=== PATIENT | male | born 1940 | race Caucasian/White ===

== ENCOUNTER 2018-05-05 10:34 | Day surgery (SDC) | payer MEDICARE, OTHER ==
[~2018-05-05] VITALS: Ht 177.8 cm; Wt 104.6 kg
[2018-05-05] VITALS (10 sets, daily range): BP systolic 129–164; BP diastolic 73–96
[2018-05-05] MEDS ORDERED: CLOP75TA15 PO (11:39)
[2018-05-05] MEDS ORDERED: TIOT18CA3 INH (11:39)
[2018-05-05] MEDS ORDERED: ASPI81TA52 PO (11:39)
[2018-05-05] MEDS ORDERED: ATOR20TA PO (11:39)
[2018-05-05] MEDS ORDERED: ATEN25TA PO (11:39)
[2018-05-05] MEDS ORDERED: OMEG1CAP PO (11:39)
[2018-05-05] MEDS ORDERED: OMEP40CA37 PO (11:39)
[2018-05-05] MEDS ORDERED: LEVO75TA PO (11:39)
[2018-05-05] MEDS ORDERED: FLUT1DIS4 INH (11:39)
[2018-05-05] MEDS ORDERED: FENO145T38 PO (11:39)
[2018-05-05] MEDS ORDERED: TRAZ150T78 PO (11:39)
[2018-05-05] MEDS ORDERED: IRBE150T51 PO (11:39)
[2018-05-05] MEDS ORDERED: CILO100T PO (11:39)
[2018-05-05 11:45] LABS: BASOPHILS # (AUTO) 0.1 X10'3 (0-0.2); BASOPHILS % (AUTO) 0.9 % (0-1); EOSINOPHILS # (AUTO) 0.3 X10'3 (0-0.9); HEMATOCRIT 49.2 % (42.0-52.0); HEMOGLOBIN 16.5 g/dl (14.0-17.9); LYMPHOCYTES # (AUTO) 1.8 X10'3 (1.1-4.8); LYMPHOCYTES % (AUTO) 27.5 % (21-51); MEAN CORPUSCULAR HEMOGLOBIN 31.2 PG (27.0-31.0); MEAN CORPUSCULAR HGB CONC 33.6 % (33.0-36.5); MEAN CORPUSCULAR VOLUME 92.8 FL (78-98); MEAN PLATELET VOLUME 7.9 FL (7.4-10.4); MONOCYTES # (AUTO) 0.6 X10'3 (0-0.9); MONOCYTES % (AUTO) 9.1 % (2-12); NEUTROPHILS # (AUTO) 3.8 X10'3 (1.8-7.7); NEUTROPHILS % (AUTO) 57.5 % (42-75); PLATELET COUNT 233 X10'3 (140-440); RED CELL DISTRIBUTION WIDTH 13.9 % (11.5-14.5); WHITE BLOOD COUNT 6.7 X10'3 (4.5-11.0)
[2018-05-05 11:52] LABS: ALBUMIN 3.9 G/DL (3.4-5.0); ANION GAP 7 (8-16); BLOOD UREA NITROGEN 15 MG/DL (7-18); BUN/CREATININE RATIO 9.2 (5.4-32.0); CALCIUM 9.5 MG/DL (8.5-10.1); CHLORIDE 103 MMOL/L (99-107); CREATININE 1.63 MG/DL (0.60-1.10); GLUCOSE 92 MG/DL (70-104); MAGNESIUM 1.8 MG/DL (1.5-2.4); POTASSIUM 4.5 MMOL/L (3.5-5.1); SODIUM 139 MMOL/L (135-145); eGFR 41 ML/MIN
[2018-05-05 11:56] LABS: INR 1.1 INR; PROTHROMBIN TIME 10.9 SECONDS (9.0-12.0)
[2018-05-05] MEDS ORDERED: normal saline 1000ml 1,000 ML IV SCH (12:15)
[2018-05-05] MEDS ORDERED: sod bicarbonate 150mEq in D5W 1,150 ML IV ONE (12:15)
[2018-05-05] MEDS ORDERED: diphenhydrAMINE 25mg capsule PO PRN (12:15)
[2018-05-05] MEDS ORDERED: midazolam 2 mg/2 ml injection ONE ×2 (16:50→18:44)
[2018-05-05] MEDS ORDERED: LIDOcaine 1% (10mg/ml)w/preservative injection 20ml MDV ONE (16:50)
[2018-05-05] MEDS ORDERED: iohexol 350MG/ML 100ml bottle IV ONE (16:50)
[2018-05-05] MEDS ORDERED: iohexol 350 MG/ML 50ML vial IV ONE (16:50)
[2018-05-05] MEDS ORDERED: fentaNYL/PF 50MCG/1 ML 2ML syringe ONE ×2 (16:50→18:45)
[2018-05-05] MEDS ORDERED: proCHLORperazine 10 MG/2 ml inj ONE (17:14)
[2018-05-05] MEDS ORDERED: iohexol 350 MG/1 ML 200ml bottle ONE (17:29)
[2018-05-05] MEDS ORDERED: heparin 1,000unit/ml 10ml vial 10 ML ONE (17:36)
[2018-05-05] MEDS ORDERED: clopidogrel 300mg tablet ONE (18:55)
[2018-05-05] MEDS ORDERED: omega-3 acid ethyl esters 1GM capsule PO SCH (20:00)
[2018-05-05] MEDS ORDERED: traZODone 150mg tablet PO SCH (21:00)
[2018-05-06] MEDS ORDERED: cilostazol 50mg tablet PO SCH (07:00)
[2018-05-06] MEDS ORDERED: pantoprazole 40mg Tablet.DR PO SCH (07:30)
[2018-05-06] MEDS ORDERED: losartan 50mg tablet PO SCH (08:00)
[2018-05-06] MEDS ORDERED: albuterol 2.5 MG/3 ML nebule NEB SCH (08:00)
[2018-05-06] MEDS ORDERED: aspirin 81mg tablet.DR PO SCH (08:00)
[2018-05-06] MEDS ORDERED: levoTHYROXINE 75mcg tablet PO SCH (08:00)
[2018-05-06] MEDS ORDERED: fenofibrate 145mg tablet PO SCH (08:00)
[2018-05-06] MEDS ORDERED: atorvastatin 20mg tablet PO SCH (08:00)
[2018-05-06] MEDS ORDERED: BUDESONIDE 0.25 MG/2 ML AMPUL.NEB IH SCH (08:00)
[2018-05-06] MEDS ORDERED: clopidogrel 75mg tablet PO SCH (08:00)
[2018-05-06] MEDS ORDERED: ipratropium 0.5 MG/2.5ML nebule IH SCH (08:00)
[2018-05-06] MEDS ORDERED: atenolol 25mg tablet PO SCH (08:00)
== END 2018-05-05 22:40 | disposition home or self-care (01) ==
LOC: SSTAY O 10:34 → PCU 3S 21:21 → SSTAY O 22:40
PROVIDERS: ATTEND Internal Medicine Cardiovascular Disease
DX: I25.708 Atherosclerosis of coronary artery bypass graft(s), unspecified, with other forms of angina pectoris (principal); I10 Essential (primary) hypertension; E78.5 Hyperlipidemia, unspecified; M19.90 Unspecified osteoarthritis, unspecified site; F32.9 Major depressive disorder, single episode, unspecified; Z90.49 Acquired absence of other specified parts of digestive tract; G47.33 Obstructive sleep apnea (adult) (pediatric); K21.9 Gastro-esophageal reflux disease without esophagitis; E05.90 Thyrotoxicosis, unspecified without thyrotoxic crisis or storm; Z98.41 Cataract extraction status, right eye; Z95.828 Presence of other vascular implants and grafts; Z98.42 Cataract extraction status, left eye; Z85.828 Personal history of other malignant neoplasm of skin; Z72.89 Other problems related to lifestyle; Z86.79 Personal history of other diseases of the circulatory system; Z95.5 Presence of coronary angioplasty implant and graft; Z95.1 Presence of aortocoronary bypass graft; Z79.891 Long term (current) use of opiate analgesic; Z79.01 Long term (current) use of anticoagulants; Z79.82 Long term (current) use of aspirin; Z86.74 Personal history of sudden cardiac arrest; Z87.891 Personal history of nicotine dependence; Z87.09 Personal history of other diseases of the respiratory system; Z88.8 Allergy status to other drugs, medicaments and biological substances; Z79.899 Other long term (current) drug therapy; Z98.890 Other specified postprocedural states; Z82.3 Family history of stroke; Z82.49 Family history of ischemic heart disease and other diseases of the circulatory system
CPT/HCPCS: 36415; 80048; 83735; 85025; 85610; 93005; 93459; 99152; 99153; A6257; C1760; C1874; C1887; C9600; J0780; J1644; J2001; J2250; J3010; Q0163; Q9967; A4620; C1725; C1769; C1894; G0378

== ENCOUNTER 2018-08-04 08:26 | Day surgery (SDC) | payer MEDICARE, OTHER ==
[2018-08-04] VITALS (14 sets, daily range): BP systolic 90–157; BP diastolic 54–106
[~2018-08-04] VITALS: Ht 177.8 cm; Wt 95.7 kg
[~2018-08-04 08:26] MED LIST: ASPI81TA52 PO; ATEN25TA PO; ATOR20TA PO; CILO100T PO; CLOP75TA15 PO; FENO145T38 PO; FLUT1DIS4 INH; IRBE150T51 PO; LEVO75TA PO; OMEG1CAP PO; OMEP40CA37 PO; TIOT18CA3 INH; TRAZ150T78 PO
[2018-08-04] MEDS ORDERED: normal saline 1000ml 1,000 ML IV SCH (08:45)
[2018-08-04] MEDS ORDERED: fentaNYL/PF 50MCG/1 ML 2ML syringe IV ONE (08:50)
[2018-08-04] MEDS ORDERED: MIDAZolam 1mg/ml 10ml vial IV ONE (08:50)
[2018-08-04] MEDS ORDERED: DIGO125T PO (09:12)
[2018-08-04] MEDS ORDERED: ALBU8.5H8 INH (09:12)
[2018-08-04] MEDS ORDERED: RIVA15TA PO (09:12)
[2018-08-04] MEDS ORDERED: LEVO75TA56 PO (09:12)
[2018-08-04] MEDS ORDERED: FLEC100T2 PO (09:12)
[2018-08-04 09:33] LABS: BASOPHILS % (AUTO) 0.7 % (0-1); EOSINOPHILS # (AUTO) 0.2 X10'3 (0-0.9); EOSINOPHILS % (AUTO) 2.7 % (0-6); HEMATOCRIT 50.7 % (42.0-52.0); HEMOGLOBIN 16.6 g/dl (14.0-17.9); LYMPHOCYTES # (AUTO) 1.1 X10'3 (1.1-4.8); LYMPHOCYTES % (AUTO) 18.2 % (21-51); MEAN CORPUSCULAR HEMOGLOBIN 31.1 PG (27.0-31.0); MEAN CORPUSCULAR HGB CONC 32.8 g/dL (33.0-36.5); MEAN CORPUSCULAR VOLUME 94.9 FL (78-98); MEAN PLATELET VOLUME 7.8 FL (7.4-10.4); MONOCYTES # (AUTO) 0.6 X10'3 (0-0.9); NEUTROPHILS # (AUTO) 4.3 X10'3 (1.8-7.7); NEUTROPHILS % (AUTO) 69.4 % (42-75); PLATELET COUNT 209 X10'3 (140-440); RED BLOOD COUNT 5.34 X10'6 (4.70-6.10); RED CELL DISTRIBUTION WIDTH 14.2 % (11.5-14.5); WHITE BLOOD COUNT 6.2 X10'3 (4.5-11.0)
[2018-08-04 09:43] LABS: ALBUMIN 3.4 G/DL (3.4-5.0); ANION GAP 8 (8-16); BLOOD UREA NITROGEN 15 MG/DL (7-18); BUN/CREATININE RATIO 10.9 (5.4-32.0); CALCIUM 9.4 MG/DL (8.5-10.1); CHLORIDE 102 MMOL/L (99-107); CREATININE 1.37 MG/DL (0.60-1.10); GLUCOSE 109 MG/DL (70-104); MAGNESIUM 1.4 MG/DL (1.5-2.4); POTASSIUM 3.9 MMOL/L (3.5-5.1); SODIUM 139 MMOL/L (135-145); TOTAL CARBON DIOXIDE 29.4 MMOL/L (24-32); eGFR 51 ML/MIN
[2018-08-04 09:44] LABS: INR 1.3 INR
--- NOTE | 2018-08-04 10:00 | NUR ---
correction versed administered, no morphine administered
== END 2018-08-04 12:05 | disposition home or self-care (01) ==
LOC: SSTAY O 08:26
PROVIDERS: ATTEND Internal Medicine Cardiovascular Disease
DX: I48.92 Unspecified atrial flutter (principal); I73.9 Peripheral vascular disease, unspecified; E78.5 Hyperlipidemia, unspecified; I12.9 Hypertensive chronic kidney disease with stage 1 through stage 4 chronic kidney disease, or unspecified chronic kidney disease; I48.91 Unspecified atrial fibrillation; N18.3 Chronic kidney disease, stage 3 (moderate); E03.9 Hypothyroidism, unspecified; F32.9 Major depressive disorder, single episode, unspecified; Z95.5 Presence of coronary angioplasty implant and graft; Z79.899 Other long term (current) drug therapy; Z86.73 Personal history of transient ischemic attack (TIA), and cerebral infarction without residual deficits; Z82.49 Family history of ischemic heart disease and other diseases of the circulatory system; F17.210 Nicotine dependence, cigarettes, uncomplicated; Z88.8 Allergy status to other drugs, medicaments and biological substances
CPT/HCPCS: 36415; 80048; 83735; 85025; 85610; 92960; 93005; J2250; J3010; J7030

== ENCOUNTER 2018-08-18 10:08 | Day surgery (SDC) | payer MEDICARE, OTHER ==
[2018-08-18] VITALS (13 sets, daily range): BP systolic 81–132; BP diastolic 50–89
[~2018-08-18] VITALS: Ht 177.8 cm; Wt 94.3 kg
[~2018-08-18 10:08] MED LIST changes: +ALBU8.5H8 INH; -ASPI81TA52 PO; +DIGO125T PO; +FLEC100T2 PO; -LEVO75TA PO; +LEVO75TA56 PO; +RIVA15TA PO
[2018-08-18] MEDS ORDERED: fentaNYL/PF 50MCG/1 ML 2ML syringe IV ONE (10:40)
[2018-08-18] MEDS ORDERED: MIDAZolam 1mg/ml 10ml vial IV ONE (10:40)
[2018-08-18] MEDS ORDERED: normal saline 1000ml 1,000 ML IV PRN (10:40)
[2018-08-18 11:24] LABS: ALBUMIN 3.4 G/DL (3.4-5.0); ANION GAP 5 (8-16); BLOOD UREA NITROGEN 12 MG/DL (7-18); BUN/CREATININE RATIO 8.5 (5.4-32.0); CALCIUM 9.1 MG/DL (8.5-10.1); CHLORIDE 104 MMOL/L (99-107); CREATININE 1.42 MG/DL (0.60-1.10); GLUCOSE 104 MG/DL (70-104); MAGNESIUM 1.5 MG/DL (1.5-2.4); SODIUM 139 MMOL/L (135-145); TOTAL CARBON DIOXIDE 30.2 MMOL/L (24-32); eGFR 48 ML/MIN
[2018-08-18 11:25] LABS: BASOPHILS # (AUTO) 0.1 X10'3 (0-0.2); EOSINOPHILS # (AUTO) 0.2 X10'3 (0-0.9); EOSINOPHILS % (AUTO) 2.3 % (0-6); HEMATOCRIT 49.2 % (42.0-52.0); HEMOGLOBIN 16.3 g/dl (14.0-17.9); LYMPHOCYTES # (AUTO) 1.3 X10'3 (1.1-4.8); LYMPHOCYTES % (AUTO) 15.2 % (21-51); MEAN CORPUSCULAR HEMOGLOBIN 30.8 PG (27.0-31.0); MEAN CORPUSCULAR VOLUME 93.1 FL (78-98); MEAN PLATELET VOLUME 8.1 FL (7.4-10.4); MONOCYTES # (AUTO) 0.6 X10'3 (0-0.9); MONOCYTES % (AUTO) 7.2 % (2-12); NEUTROPHILS # (AUTO) 6.1 X10'3 (1.8-7.7); NEUTROPHILS % (AUTO) 74.3 % (42-75); PLATELET COUNT 231 X10'3 (140-440); RED BLOOD COUNT 5.28 X10'6 (4.70-6.10); WHITE BLOOD COUNT 8.3 X10'3 (4.5-11.0)
[2018-08-18] MEDS ORDERED: FLEC100T2 PO (11:28)
[2018-08-18 11:32] LABS: INR 1.5 INR; PROTHROMBIN TIME 14.5 SECONDS (9.0-12.0)
[2018-08-18] MEDS ORDERED: IRBE150T51 PO (11:33)
--- NOTE | 2018-08-18 13:41 | NUR ---
Administered 250ml bolus NS given. will continue to monitor.
== END 2018-08-18 14:55 | disposition home or self-care (01) ==
LOC: SSTAY O 10:08
PROVIDERS: ATTEND Internal Medicine Cardiovascular Disease
DX: I48.91 Unspecified atrial fibrillation (principal); E78.5 Hyperlipidemia, unspecified; I10 Essential (primary) hypertension; E03.9 Hypothyroidism, unspecified; F32.9 Major depressive disorder, single episode, unspecified; Z95.1 Presence of aortocoronary bypass graft; Z90.49 Acquired absence of other specified parts of digestive tract; Z98.890 Other specified postprocedural states; Z88.8 Allergy status to other drugs, medicaments and biological substances
CPT/HCPCS: 36415; 80048; 83735; 85025; 85610; 92960; 93005; J2250; J3010; J7030

== ENCOUNTER 2021-11-22 05:32 | Day surgery (SDC) | payer MEDICARE, OTHER ==
[2021-11-16 11:36] LABS: CLARITY,URINE CLEAR (Clear); COLOR,URINE YELLOW (Yellow); GLUCOSE, URINE NEGATIVE (Neg); KETONES,URINE NEGATIVE (Neg); LEUKOCYTE ESTERASE ,URINE SMALL (Neg); NITRITES, URINE NEGATIVE (Neg); OCCULT BLOOD,URINE NEGATIVE (Neg); PH,URINE 6.5 (4.8-8.0); PROTEIN,URINE NEGATIVE (Neg)
[2021-11-16 11:37] LABS: BASOPHILS # (AUTO) 0.1 X10'3 (0-0.2); BASOPHILS % (AUTO) 0.7 % (0-1); EOSINOPHILS # (AUTO) 0.2 X10'3 (0-0.9); EOSINOPHILS % (AUTO) 2.1 % (0-6); LYMPHOCYTES # (AUTO) 1.5 X10'3 (1.1-4.8); LYMPHOCYTES % (AUTO) 14.9 % (21-51); MEAN CORPUSCULAR HGB CONC 32.9 g/dL (33.0-36.5); MEAN CORPUSCULAR VOLUME 94.2 FL (78-98); MEAN PLATELET VOLUME 7.7 FL (7.4-10.4); MONOCYTES # (AUTO) 0.9 X10'3 (0-0.9); MONOCYTES % (AUTO) 9.6 % (2-12); NEUTROPHILS # (AUTO) 7.1 X10'3 (1.8-7.7); NEUTROPHILS % (AUTO) 72.7 % (42-75); PRE OP HEMOGLOBIN 13.8 g/dL (14.0-17.9); PRE OP PLATELET COUNT 252 X10'3 (140-440); RED BLOOD COUNT 4.45 X10'6 (4.70-6.10)
[2021-11-16 11:38] LABS: UA COLLECTION TYPE CLN CATCH MIDSTREAM
[2021-11-16 11:51] LABS: ALBUMIN 3.1 G/DL (3.4-5.0); ALBUMIN/GLOBULIN RATIO 0.8 (1.1-1.5); ALKALINE PHOSPHATASE 95 IU/L (46-116); BLOOD UREA NITROGEN 14 MG/DL (7-18); BUN/CREATININE RATIO 15.6 (5.4-32.0); CALCIUM 8.7 MG/DL (8.5-10.1); CHLORIDE 101 MMOL/L (99-107); PRE OP ALT 12 U/L (30-65); PRE OP ANION GAP 5 (8-16); PRE OP AST 18 U/L (10-37); PRE OP BILIRUB, TOTAL 0.9 MG/DL (0.0-1.0); PRE OP GLUCOSE 88 MG/DL (70-104); PRE OP POTASSIUM 4.5 MMOL/L (3.4-5.1); PRE OP SODIUM 137 MMOL/L (135-145); TOTAL CARBON DIOXIDE 31.5 MMOL/L (24-32); TOTAL PROTEIN 7.2 G/DL (6.4-8.2); eGFR 81 ML/MIN
[2021-11-16 11:54] LABS: SQUAMOUS EPITHELIAL CELL,UR FEW /LPF (FEW)
[2021-11-16 11:55] LABS: BACTERIA,URINE 1+ /HPF (Neg); RBC,URINE NONE SEEN /HPF (0-2)
[2021-11-22] VITALS (17 sets, daily range): BP systolic 130–176; BP diastolic 74–97
[~2021-11-22] VITALS: Ht 177.8 cm; Wt 64.0 kg
[~2021-11-22 05:32] MED LIST changes: -ALBU8.5H8 INH; +ASPI81TA52 PO; -ATEN25TA PO; -CILO100T PO; -CLOP75TA15 PO; -DIGO125T PO; +ESCI-8 PO; -FENO145T38 PO; -FLEC100T2 PO; -FLUT1DIS4 INH; -IRBE150T51 PO; +ISOS60TA71 PO; -OMEG1CAP PO; +OMEP40CA21 PO; -OMEP40CA37 PO; +POTA-205 PO; -RIVA15TA PO; +SODIUM CLORIDE PO; -TIOT18CA3 INH; -TRAZ150T78 PO; +ceFAZolin inj. 2,000 MG in dextrose 5%-water 100 ML IV ONE; +famotidine 20mg tablet PO ONE; +ringers solution, lacted 1,000 ML IV SCH
[2021-11-22] MEDS ORDERED: BUPIVAcaine/PF 2.5 mg/ml (0.25%) 30ml vial ONE (07:22)
[2021-11-22] MEDS ORDERED: fentaNYL/PF 50MCG/1 ML 2ML syringe ONE (08:35)
[2021-11-22] MEDS ORDERED: propofol inj 20 ML IV ONE (08:39)
[2021-11-22] MEDS ORDERED: rocuronium 10mg/ml inj IV ONE (08:39)
[2021-11-22] MEDS ORDERED: morphine 2 MG/ML inj. syringe IV PRN (08:45)
[2021-11-22] MEDS ORDERED: meperidine/PF 25mg/ml syringe IV PRN ×3 (08:45)
[2021-11-22] MEDS ORDERED: proCHLORperazine 10 MG/2 ml inj IV PRN (08:45)
[2021-11-22] MEDS ORDERED: ondansetron/PF 4mg/2ml inj IV PRN (08:45)
[2021-11-22] MEDS ORDERED: morphine 4 MG/ML inj SYRINge IV PRN (08:45)
[2021-11-22] MEDS ORDERED: ringers solution, lacted 1,000 ML IV SCH (08:45)
[2021-11-22] MEDS ORDERED: sevoflurane 250ml liquid IH ONE (09:38)
[2021-11-22] MEDS ORDERED: neostigmine methylsulfate 1 MG/ML 10ml vial ONE (09:38)
[2021-11-22] MEDS ORDERED: glycopyrrolate 0.2mg/ml inj ONE (09:38)
[2021-11-22] MEDS ORDERED: dexamethasone sod phosphate 4mg/ml inj. ONE (09:53)
[2021-11-22] MEDS ORDERED: ondansetron/PF 4mg/2ml inj ONE (11:00)
[2021-11-22] MEDS ORDERED: acetaminophen 1,000mg/100ml IV 100 ML IV ONE (11:07)
--- NOTE | 2021-11-22 11:41 | NUR ---
Received from OR via [facility], accompanied by Anesthesiologist DUSTIN and report given by Anesthesiolgist AND AUTOMATIC WHEEL LINE OPERATOR. PT ARRIVES DROWSY BUT AWAKE, RESPONSIVE TO VERBAL STIMULI. ON MASK O2 WITH 100% SPO2. VSS. PT DENIES PAIN. LAP INCISION SITES DRY AND CLEAN WITH GLUE ON SITES. Addendum: 11/22/21 at 1148 by Sandoval Turk RN Amended: Links added.
--- NOTE | 2021-11-22 13:21 | NUR ---
PT HAS NO URGE TO VOID AFTER MULTIPLE HOUR WITH NO URINARY OUTPUT. PT HAS HISTORY OF URINARY RETENTION. UPON BLADDER SCANNING, SHOWS >450 ML URINE. Addendum: 11/22/21 at 1453 by Sandoval Turk RN Amended: Links added.
--- NOTE | 2021-11-22 14:31 | NUR ---
PT DC'D WITH VERBAL AND WRITTEN DC PAPERWORK, FOLLOW UP PLAN OF CARE DISCUSSED AND FOLLOW UP APPOINTMENTS. PT VERBALIZED UNDERSTANDING TO RETURN IN 48 HR FOR FC REMOVAL AND 2 WEEKS FOR SURGICAL APPOINTMENT. VSS, DENIES PAIN. ASSISTED TO POV INTO [facility] VIA WHEELCHAIR WITHOUT INCIDENT. IV REMOVED. Addendum: 11/22/21 at 1450 by Sandoval Turk RN Amended: Links added.
== END 2021-11-22 14:31 | disposition home or self-care (01) ==
LOC: PAS 05:32
PROVIDERS: ATTEND Surgery
DX: K40.30 Unilateral inguinal hernia, with obstruction, without gangrene, not specified as recurrent (principal); J44.9 Chronic obstructive pulmonary disease, unspecified; I10 Essential (primary) hypertension; E78.5 Hyperlipidemia, unspecified; I48.0 Paroxysmal atrial fibrillation; I25.10 Atherosclerotic heart disease of native coronary artery without angina pectoris; G47.30 Sleep apnea, unspecified; F32.A Depression, unspecified; G89.29 Other chronic pain; E03.9 Hypothyroidism, unspecified; Z95.1 Presence of aortocoronary bypass graft; Z79.899 Other long term (current) drug therapy; Z87.891 Personal history of nicotine dependence; Z88.8 Allergy status to other drugs, medicaments and biological substances; Z72.89 Other problems related to lifestyle; Z87.440 Personal history of urinary (tract) infections; Z85.828 Personal history of other malignant neoplasm of skin
CPT/HCPCS: 36415; 49650; 71046; 80053; 81001; 82948; 85025; 87077; 87088; 87186; 93005; 93306; C1758; C1781; J0131; J0690; J1100; J2405; J2704; J2710; J3010; J3490; J7060; J7120; Z7506; Z7508; Z7512; A4215; A4618

== ENCOUNTER 2023-09-06 06:40 | Inpatient (IN) | payer MEDICARE, OTHER ==
[~2023-09-06] VITALS: Ht 167.6 cm; Wt 68.2 kg
[~2023-09-06 06:40] MED LIST changes: -ceFAZolin inj. 2,000 MG in dextrose 5%-water 100 ML IV ONE; -famotidine 20mg tablet PO ONE; -ringers solution, lacted 1,000 ML IV SCH
[2023-09-06] MEDS: aspirin 81mg tab.chew PO ONE (08:38)
[2023-09-06] MEDS: ondansetron/PF 4mg/2ml inj IV ONE (08:39)
[2023-09-06] MEDS: morphine 4 MG/ML inj SYRINge IV ONE ×2 (08:39→11:12)
[2023-09-06 08:56] LABS: BASOPHILS # (AUTO) 0.1 X10'3 (0-0.2); BASOPHILS % (AUTO) 0.8 % (0-1); EOSINOPHILS # (AUTO) 0.1 X10'3 (0-0.9); EOSINOPHILS % (AUTO) 1.1 % (0-6); HEMATOCRIT 51.9 % (42.0-52.0); HEMOGLOBIN 17.3 g/dl (14.0-17.9); LYMPHOCYTES # (AUTO) 1.2 X10'3 (1.1-4.8); LYMPHOCYTES % (AUTO) 9.4 % (21-51); MEAN CORPUSCULAR HEMOGLOBIN 31.1 PG (27.0-31.0); MEAN CORPUSCULAR HGB CONC 33.2 g/dL (33.0-36.5); MEAN CORPUSCULAR VOLUME 93.6 FL (78-98); MEAN PLATELET VOLUME 8.9 FL (7.4-10.4); MONOCYTES % (AUTO) 7.8 % (2-12); NEUTROPHILS # (AUTO) 10.1 X10'3 (1.8-7.7); NEUTROPHILS % (AUTO) 80.9 % (42-75); PLATELET COUNT 135 X10'3 (140-440); RED BLOOD COUNT 5.55 X10'6 (4.70-6.10); RED CELL DISTRIBUTION WIDTH 15.9 % (11.5-14.5); WHITE BLOOD COUNT 12.5 X10'3 (4.5-11.0)
[2023-09-06 09:22] LABS: ALBUMIN 3.2 G/DL (3.4-5.0); ANION GAP 9 (8-16); BLOOD UREA NITROGEN 16 MG/DL (7-18); BUN/CREATININE RATIO 14.5 (10.0-20.0); CALCIUM 9.1 MG/DL (8.5-10.1); CHLORIDE 98 MMOL/L (99-107); GLUCOSE 115 MG/DL (70-104); MAGNESIUM 1.3 MG/DL (1.5-2.4); POTASSIUM 3.9 MMOL/L (3.5-5.1); PRO BRAIN NATRIURETIC PEPTIDE 5008 PG/ML (0-450); SODIUM 134 MMOL/L (135-145); TOTAL CARBON DIOXIDE 26.8 MMOL/L (24-32); eCRCL 46 ML/MIN; eGFR 64 ML/MIN
[2023-09-06 09:30] LABS: INR 1.4 INR; PROTHROMBIN TIME 15.2 SECONDS (9.0-12.0)
[2023-09-06] MEDS: heparin 25,000 UNIT/250ml bag 250 ML IV PRN (09:55)
[2023-09-06] MEDS: heparin 10,000 units/1 ML INJ IV ONE (09:56)
[2023-09-06] MEDS ORDERED: DIGO250T2 PO (11:23)
[2023-09-06] MEDS ORDERED: LISI10TA27 PO (11:23)
[2023-09-06] MEDS ORDERED: METO-395 PO (11:23)
[2023-09-06] MEDS ORDERED: hydrALAZINE 20mg/ml inj. IV ONE (15:15)
[2023-09-06] MEDS ORDERED: iohexol 350 MG/ML 50ML vial IV ONE (15:44)
[2023-09-06] MEDS ORDERED: iohexol 350MG/ML 100ml bottle IV ONE (15:44)
[2023-09-06] MEDS ORDERED: potassium Cl 40MEQ/1/2NS 520ml 520 ML IV PRN (15:55)
[2023-09-06] MEDS ORDERED: mag hydrox/Alum hydrox/simeth 30ml oral suspension PO PRN (15:55)
[2023-09-06] MEDS ORDERED: ondansetron/PF 4mg/2ml inj IV PRN ×3 (15:55→21:20)
[2023-09-06] MEDS ORDERED: potassium Cl 20 mEq SR tablet PO PRN ×2 (15:55)
[2023-09-06] MEDS ORDERED: acetaminophen 325mg tablet PO PRN (15:55)
[2023-09-06] MEDS ORDERED: magnesium hydroxide 30ml (MOM) UD suspension PO PRN (15:55)
[2023-09-06] MEDS ORDERED: magnesium Cl slow-release 64mg tablet PO PRN (15:55)
[2023-09-06] MEDS ORDERED: hydrALAZINE 20mg/ml inj. IV PRN ×2 (17:00→18:05)
[2023-09-06] MEDS ORDERED: iohexol 300 MG/1 ML 50ml polymer ONE ×2 (17:26)
[2023-09-06] MEDS ORDERED: labetalol 5mg/ml 20ml inj. IV PRN (18:05)
[2023-09-06] MEDS ORDERED: fentaNYL/PF 50MCG/1 ML 2ML syringe IV PRN ×2 (18:05)
[2023-09-06] MEDS: ringers solution, lacted 1,000 ML IV SCH ×2 (18:05→21:20)
[2023-09-06] MEDS ORDERED: LIDOcaine 2% (20mg/ml) 5ml vial ONE ×2 (18:14)
[2023-09-06] MEDS ORDERED: fentaNYL/PF 50MCG/1 ML 2ML syringe ONE (18:15)
[2023-09-06] MEDS ORDERED: propofol inj 20 ML IV ONE (18:16)
[2023-09-06] MEDS ORDERED: midazolam 1 mg/ML 2ml injection ONE (18:16)
[2023-09-06] MEDS ORDERED: albumin (Human) 5% 250ml 250 ML IV ONE ×5 (18:17→22:27)
[2023-09-06] MEDS ORDERED: sevoflurane 250ml liquid IH ONE (18:35)
[2023-09-06] MEDS ORDERED: albumin (Human) 5% 250ml 750 ML IV ONE (19:14)
[2023-09-06] MEDS ORDERED: ceFAZolin 1000mg inj ONE ×2 (19:14)
[2023-09-06] MEDS: docusate sod 100mg capsule PO SCH (20:00)
[2023-09-06] MEDS: K and/or MAG REPLACEMENT MC SCH (20:00)
[2023-09-06] MEDS ORDERED: labetalol 20mg/4ml (5mg/ml) syringe IV ONE (20:17)
[2023-09-06] MEDS ORDERED: heparin 1,000unit/ml 10ml vial 10 ML ONE (21:03)
[2023-09-06] MEDS ORDERED: naloxone 0.4 mg/ml inj IV PRN (21:30)
[2023-09-06] MEDS ORDERED: MIDAZolam 1 MG/ML 5ML VIAL ONE (21:41)
[2023-09-06] MEDS ORDERED: protamine sulfate 10mg/ml inj. ONE (22:23)
[2023-09-06] MEDS ORDERED: PCA WASTE DOCUMENTATION 1 MG ML MC SCH (22:30)
[2023-09-06] MEDS: morphine/NS PCA 1mg/ml 50ml 50 ML IV SCH (23:00)
[2023-09-06 23:04] LABS: INR 1.7 INR; PROTHROMBIN TIME 17.7 SECONDS (9.0-12.0)
[2023-09-06 23:08] LABS: APTT > 139 SECONDS (22-32)
[2023-09-06 23:17] VITALS: BP 113/57; PULSE 110; RESP 12; O2SAT 100
[2023-09-06 23:20] VITALS: BP 113/76; PULSE 100; RESP 12; O2SAT 96
[2023-09-06 23:30] VITALS: BP 115/67; PULSE 110; RESP 12; O2SAT 100
[2023-09-06 23:40] VITALS: BP 107/74; PULSE 99; RESP 12; O2SAT 100
[2023-09-06 23:40] LABS: ABG BASE EXCESS -2.7 mmol/L (-2.0-2.0); ABG HCO3 21.2 mmol/L (22.0-26.0); ABG OXYGEN SATURATION 99.7 % (94-97); ABG PH (T) 7.433 (7.340-7.440); ABG PO2 (T) 398.3 mmHg (75.0-100.0); FCOHb 0.9 % (0.0-3.9); FHHb 0.3 % (0.0-5.0); FMetHb 0.3 % (0.0-1.5); FO2Hb 98.5 % (94-97); MODE VENT - SIMV; PATIENT TEMPERATURE 35.4; PEEP 5 cm H2O; RESPIRATORY RATE 12 b/min; TIDAL VOLUME 600 mL
[2023-09-06] MEDS ORDERED: midazolam 100mg in NS 100ml 100 ML IV PRN (23:45)
[2023-09-06 23:50] VITALS: BP 120/64; PULSE 98; RESP 12; O2SAT 100
[2023-09-06] MEDS: morphine 2 MG/ML inj. syringe IV PRN (23:58)
[2023-09-07] VITALS (40 sets, daily range): BP systolic 78–155; BP diastolic 37–65; PULSE 62–116; RESP 11–15; TEMP 98–98.1; O2SAT 90–100
[2023-09-07 00:07] LABS: ALBUMIN 2.9 G/DL (3.4-5.0); ALBUMIN/GLOBULIN RATIO 1.5 (1.1-1.5); ALKALINE PHOSPHATASE 35 IU/L (46-116); ANION GAP 11 (8-16); ASPARTATE AMINO TRANSFERASE 16 U/L (10-37); BILIRUBIN,TOTAL 1.7 MG/DL (0.1-1.0); BLOOD UREA NITROGEN 14 MG/DL (7-18); BUN/CREATININE RATIO 16.1 (10.0-20.0); CALCIUM 7.4 MG/DL (8.5-10.1); CHLORIDE 103 MMOL/L (99-107); CREATININE 0.87 MG/DL (0.60-1.10); GLUCOSE 120 MG/DL (70-104); POTASSIUM 4.3 MMOL/L (3.5-5.1); SODIUM 137 MMOL/L (135-145); TOTAL PROTEIN 4.8 G/DL (6.4-8.2); eCRCL 58 ML/MIN; eGFR 84 ML/MIN
[2023-09-07 00:08] LABS: BASOPHILS # (AUTO) 0.1 X10'3 (0-0.2); BASOPHILS % (AUTO) 0.4 % (0-1); EOSINOPHILS % (AUTO) 0.2 % (0-6); HEMATOCRIT 36.1 % (42.0-52.0); HEMOGLOBIN 12.2 g/dl (14.0-17.9); LYMPHOCYTES # (AUTO) 0.9 X10'3 (1.1-4.8); LYMPHOCYTES % (AUTO) 5.7 % (21-51); MEAN CORPUSCULAR HEMOGLOBIN 31.4 PG (27.0-31.0); MEAN CORPUSCULAR HGB CONC 33.8 g/dL (33.0-36.5); MEAN PLATELET VOLUME 8.4 FL (7.4-10.4); MONOCYTES # (AUTO) 0.3 X10'3 (0-0.9); NEUTROPHILS # (AUTO) 14.3 X10'3 (1.8-7.7); NEUTROPHILS % (AUTO) 91.7 % (42-75); PLATELET COUNT 90 X10'3 (140-440); RED BLOOD COUNT 3.88 X10'6 (4.70-6.10); RED CELL DISTRIBUTION WIDTH 15.6 % (11.5-14.5); WHITE BLOOD COUNT 15.6 X10'3 (4.5-11.0)
[2023-09-07 00:17] LABS: ALANINE AMINOTRANSFERASE 6 U/L (12-78)
[2023-09-07] MEDS: amiodarone 150mg/dext, iso-os 100 ML IV ONE ×2 (00:30→00:34)
[2023-09-07] MEDS: amiodarone/D5 360MG/200ML BAG 200 ML IV SCH (00:41)
[2023-09-07] MEDS: morphine 2 MG/ML inj. syringe IV PRN (01:05)
[2023-09-07] MEDS: magnesium 2GM in 50ml NS 50 ML IV PRN (01:44)
[2023-09-07] MEDS: albumin (human) 25% 100ml IV 100 ML in dextrose 5% water 500ml 400 ML IV ONE (01:49)
[2023-09-07] MEDS: albumin (Human) 5% 250ml 500 ML IV ONE (01:52)
[2023-09-07 03:01] LABS: BASOPHILS # (AUTO) 0.1 X10'3 (0-0.2); BASOPHILS % (AUTO) 0.7 % (0-1); EOSINOPHILS % (AUTO) 0.1 % (0-6); HEMATOCRIT 29.9 % (42.0-52.0); LYMPHOCYTES # (AUTO) 0.6 X10'3 (1.1-4.8); LYMPHOCYTES % (AUTO) 4.1 % (21-51); MEAN CORPUSCULAR HEMOGLOBIN 31.2 PG (27.0-31.0); MEAN CORPUSCULAR HGB CONC 33.3 g/dL (33.0-36.5); MEAN CORPUSCULAR VOLUME 93.6 FL (78-98); MEAN PLATELET VOLUME 8.4 FL (7.4-10.4); MONOCYTES # (AUTO) 0.6 X10'3 (0-0.9); MONOCYTES % (AUTO) 4.3 % (2-12); NEUTROPHILS % (AUTO) 90.8 % (42-75); PLATELET COUNT 83 X10'3 (140-440); RED CELL DISTRIBUTION WIDTH 15.4 % (11.5-14.5); WHITE BLOOD COUNT 14.3 X10'3 (4.5-11.0)
[2023-09-07 03:11] LABS: ALANINE AMINOTRANSFERASE 7 U/L (12-78); ALBUMIN 3.4 G/DL (3.4-5.0); ALBUMIN/GLOBULIN RATIO 2.3 (1.1-1.5); ALKALINE PHOSPHATASE 31 IU/L (46-116); ANION GAP 12 (8-16); ASPARTATE AMINO TRANSFERASE 18 U/L (10-37); BLOOD UREA NITROGEN 16 MG/DL (7-18); BUN/CREATININE RATIO 15.2 (10.0-20.0); CALCIUM 7.4 MG/DL (8.5-10.1); CHLORIDE 102 MMOL/L (99-107); CHOL/HDL RATIO 2.8 (0.00-4.99); CHOLESTEROL 59 MG/DL (0-200); CREATININE 1.05 MG/DL (0.60-1.10); FREE T4 (FREE THYROXINE) 1.23 NG/DL (0.73-1.40); GLUCOSE 165 MG/DL (70-104); HDL CHOLESTEROL 21 MG/DL (35-60); LDL CHOLESTEROL 22 MG/DL (50-100); MAGNESIUM 1.4 MG/DL (1.5-2.4); SODIUM 137 MMOL/L (135-145); THYROID STIMULATING HORMONE 0.73 ulU/ml (0.34-4.50); TOTAL CARBON DIOXIDE 23.3 MMOL/L (24-32); TOTAL PROTEIN 4.9 G/DL (6.4-8.2); TRIGLYCERIDES 41 MG/DL (20-135); eCRCL 48 ML/MIN; eGFR 68 ML/MIN
[2023-09-07] MEDS: ceFOXitin 2GM-NS 100mL ADDvant 100 ML IV SCH ×2 (03:20→16:04)
[2023-09-07 03:39] LABS: HEMOGLOBIN A1C 5.3 % (4.5-6.2)
[2023-09-07] MEDS: magnesium 4gm in 100ml NS 100 ML IV PRN (04:12)
[2023-09-07] MEDS: heparin 25,000 UNIT/250ml bag 250 ML IV PRN ×2 (04:54→17:16)
[2023-09-07 06:18] LABS: BASOPHILS % (AUTO) 0.2 % (0-1); EOSINOPHILS % (AUTO) 0 % (0-6); HEMATOCRIT 30.4 % (42.0-52.0); LYMPHOCYTES # (AUTO) 0.6 X10'3 (1.1-4.8); LYMPHOCYTES % (AUTO) 4.6 % (21-51); MEAN CORPUSCULAR HEMOGLOBIN 30.9 PG (27.0-31.0); MEAN CORPUSCULAR VOLUME 93.9 FL (78-98); MEAN PLATELET VOLUME 8.7 FL (7.4-10.4); MONOCYTES # (AUTO) 0.7 X10'3 (0-0.9); MONOCYTES % (AUTO) 4.8 % (2-12); NEUTROPHILS # (AUTO) 12.7 X10'3 (1.8-7.7); NEUTROPHILS % (AUTO) 90.4 % (42-75); PLATELET COUNT 91 X10'3 (140-440); RED BLOOD COUNT 3.24 X10'6 (4.70-6.10); RED CELL DISTRIBUTION WIDTH 15.4 % (11.5-14.5)
[2023-09-07] MEDS: levoTHYROXINE 75mcg tablet PO SCH (07:00)
[2023-09-07] MEDS: lisinopril 10 MG tablet PO SCH (08:00)
[2023-09-07] MEDS: aspirin 81mg, enteric-coated 1 TAB TABLET.DR PO SCH (08:00)
[2023-09-07] MEDS: digoxin 250mcg (0.25mg) tablet PO SCH (08:00)
[2023-09-07] MEDS: metoprolol succinate 25mg (24-HOUR) SR. Tablet PO SCH (08:00)
[2023-09-07] MEDS ORDERED: iohexol 350MG/ML 100ml bottle IV ONE (08:33)
[2023-09-07] MEDS ORDERED: albumin (human) 25% 100ml IV 100 ML in normal saline 500ml IV soln 400 ML IV ONE (08:55)
[2023-09-07] MEDS: albumin (Human) 5% 250ml 250 ML IV ONE ×2 (09:15→10:05)
[2023-09-07 11:11] LABS: APTT > 139 SECONDS (22-32)
[2023-09-07] MEDS: morphine 4 MG/ML inj SYRINge IV PRN (13:28)
[2023-09-07 15:28] LABS: BASOPHILS # (AUTO) 0.2 X10'3 (0-0.2); BASOPHILS % (AUTO) 1.8 % (0-1); EOSINOPHILS % (AUTO) 0 % (0-6); HEMATOCRIT 23.3 % (42.0-52.0); HEMOGLOBIN 7.9 g/dl (14.0-17.9); LYMPHOCYTES # (AUTO) 1.1 X10'3 (1.1-4.8); LYMPHOCYTES % (AUTO) 7.9 % (21-51); MEAN CORPUSCULAR HEMOGLOBIN 31.5 PG (27.0-31.0); MEAN CORPUSCULAR HGB CONC 34.1 g/dL (33.0-36.5); MEAN CORPUSCULAR VOLUME 92.3 FL (78-98); MEAN PLATELET VOLUME 9.1 FL (7.4-10.4); MONOCYTES # (AUTO) 0.9 X10'3 (0-0.9); MONOCYTES % (AUTO) 6.7 % (2-12); NEUTROPHILS # (AUTO) 11.4 X10'3 (1.8-7.7); NEUTROPHILS % (AUTO) 83.6 % (42-75); PLATELET COUNT 94 X10'3 (140-440); RED BLOOD COUNT 2.53 X10'6 (4.70-6.10); RED CELL DISTRIBUTION WIDTH 15.6 % (11.5-14.5); WHITE BLOOD COUNT 13.6 X10'3 (4.5-11.0)
[2023-09-07] MEDS ORDERED: RANO500T6 PO (16:16)
[2023-09-07] MEDS ORDERED: ATOR20TA PO (16:16)
[2023-09-07] MEDS ORDERED: OXYC-145 PO (16:16)
[2023-09-07] MEDS ORDERED: CHOL20002 PO (16:16)
[2023-09-07 21:52] LABS: BASOPHILS # (AUTO) 0.2 X10'3 (0-0.2); EOSINOPHILS % (AUTO) 0 % (0-6); HEMOGLOBIN 9.5 g/dl (14.0-17.9); LYMPHOCYTES # (AUTO) 0.9 X10'3 (1.1-4.8); LYMPHOCYTES % (AUTO) 5.7 % (21-51); MEAN CORPUSCULAR HEMOGLOBIN 31.2 PG (27.0-31.0); MEAN CORPUSCULAR HGB CONC 33.9 g/dL (33.0-36.5); MEAN CORPUSCULAR VOLUME 92.1 FL (78-98); MEAN PLATELET VOLUME 9.1 FL (7.4-10.4); MONOCYTES # (AUTO) 0.6 X10'3 (0-0.9); MONOCYTES % (AUTO) 3.9 % (2-12); NEUTROPHILS # (AUTO) 14.1 X10'3 (1.8-7.7); NEUTROPHILS % (AUTO) 89.4 % (42-75); PLATELET COUNT 99 X10'3 (140-440); RED BLOOD COUNT 3.04 X10'6 (4.70-6.10); RED CELL DISTRIBUTION WIDTH 15.4 % (11.5-14.5); WHITE BLOOD COUNT 15.8 X10'3 (4.5-11.0)
[2023-09-07 23:04] LABS: TOTAL CELLS COUNTED 100
[2023-09-07 23:05] LABS: PLATELET ESTIMATE DECREASED
[2023-09-08] VITALS (39 sets, daily range): BP systolic 86–166; BP diastolic 5–76; PULSE 72–102; RESP 10–21; TEMP 98–98.2; O2SAT 97–100
[2023-09-08 00:41] LABS: BASOPHILS % (AUTO) 0.1 % (0-1); EOSINOPHILS % (AUTO) 0 % (0-6); HEMATOCRIT 27.5 % (42.0-52.0); HEMOGLOBIN 9.1 g/dl (14.0-17.9); LYMPHOCYTES # (AUTO) 1.1 X10'3 (1.1-4.8); LYMPHOCYTES % (AUTO) 6.2 % (21-51); MEAN CORPUSCULAR HEMOGLOBIN 30.6 PG (27.0-31.0); MEAN CORPUSCULAR HGB CONC 33.1 g/dL (33.0-36.5); MEAN CORPUSCULAR VOLUME 92.5 FL (78-98); MONOCYTES # (AUTO) 1.9 X10'3 (0-0.9); MONOCYTES % (AUTO) 10.9 % (2-12); NEUTROPHILS # (AUTO) 14.5 X10'3 (1.8-7.7); NEUTROPHILS % (AUTO) 82.8 % (42-75); PLATELET COUNT 105 X10'3 (140-440); RED BLOOD COUNT 2.97 X10'6 (4.70-6.10); RED CELL DISTRIBUTION WIDTH 15.5 % (11.5-14.5); WHITE BLOOD COUNT 17.4 X10'3 (4.5-11.0)
[2023-09-08 00:51] LABS: ALBUMIN/GLOBULIN RATIO 1.7 (1.1-1.5); ALKALINE PHOSPHATASE 24 IU/L (46-116); ANION GAP 9 (8-16); ASPARTATE AMINO TRANSFERASE 16 U/L (10-37); BILIRUBIN,TOTAL 1.3 MG/DL (0.1-1.0); BLOOD UREA NITROGEN 27 MG/DL (7-18); BUN/CREATININE RATIO 16.7 (10.0-20.0); CALCIUM 7.6 MG/DL (8.5-10.1); CHLORIDE 101 MMOL/L (99-107); CREATININE 1.62 MG/DL (0.60-1.10); GLUCOSE 148 MG/DL (70-104); MAGNESIUM 2.6 MG/DL (1.5-2.4); POTASSIUM 4.3 MMOL/L (3.5-5.1); SODIUM 132 MMOL/L (135-145); TOTAL CARBON DIOXIDE 21.9 MMOL/L (24-32); TOTAL PROTEIN 4.8 G/DL (6.4-8.2); eCRCL 31 ML/MIN; eGFR 41 ML/MIN
[2023-09-08 01:13] LABS: ALANINE AMINOTRANSFERASE 7 U/L (12-78)
[2023-09-08] MEDS: mineral oil/petrolatum ophthal oint EACHEYE SCH (01:20)
[2023-09-08 02:43] LABS: BASOPHILS % (AUTO) 0.2 % (0-1); EOSINOPHILS % (AUTO) 0 % (0-6); HEMATOCRIT 26.6 % (42.0-52.0); HEMOGLOBIN 8.9 g/dl (14.0-17.9); LYMPHOCYTES # (AUTO) 1.1 X10'3 (1.1-4.8); MEAN CORPUSCULAR HEMOGLOBIN 30.5 PG (27.0-31.0); MEAN CORPUSCULAR HGB CONC 33.5 g/dL (33.0-36.5); MEAN CORPUSCULAR VOLUME 91.1 FL (78-98); MEAN PLATELET VOLUME 8.6 FL (7.4-10.4); MONOCYTES # (AUTO) 1.9 X10'3 (0-0.9); MONOCYTES % (AUTO) 10.6 % (2-12); NEUTROPHILS # (AUTO) 15.3 X10'3 (1.8-7.7); NEUTROPHILS % (AUTO) 83.2 % (42-75); PLATELET COUNT 104 X10'3 (140-440); RED BLOOD COUNT 2.92 X10'6 (4.70-6.10); RED CELL DISTRIBUTION WIDTH 15.4 % (11.5-14.5); WHITE BLOOD COUNT 18.4 X10'3 (4.5-11.0)
[2023-09-08 03:28] LABS: ABG BASE EXCESS -3.2 mmol/L (-2.0-2.0); ABG HCO3 20.4 mmol/L (22.0-26.0); ABG OXYGEN SATURATION 98.7 % (94-97); ABG PCO2 (T) 32.1 mmHg (35.0-48.0); ABG PH (T) 7.423 (7.340-7.440); ABG PO2 (T) 134.2 mmHg (75.0-100.0); FCOHb 0.4 % (0.0-3.9); FHHb 1.3 % (0.0-5.0); FMetHb 0.3 % (0.0-1.5); MODE SIMV; PATIENT TEMPERATURE 37.6; PEEP 5 cm H2O; RESPIRATORY RATE 12 b/min; TIDAL VOLUME 600 mL; TOTAL HEMOGLOBIN 9.8 G/dl (14.0-17.9)
[2023-09-08 07:09] LABS: APTT 48 SECONDS (22-32)
[2023-09-08] MEDS: midazolam 100mg in NS 100ml 100 ML IV PRN (09:39)
[2023-09-08 11:09] LABS: BASOPHILS % (AUTO) 0.1 % (0-1); EOSINOPHILS % (AUTO) 0 % (0-6); HEMATOCRIT 28.7 % (42.0-52.0); HEMOGLOBIN 9.7 g/dl (14.0-17.9); LYMPHOCYTES # (AUTO) 0.9 X10'3 (1.1-4.8); LYMPHOCYTES % (AUTO) 5.1 % (21-51); MEAN CORPUSCULAR HEMOGLOBIN 30.3 PG (27.0-31.0); MEAN CORPUSCULAR HGB CONC 33.8 g/dL (33.0-36.5); MEAN CORPUSCULAR VOLUME 89.7 FL (78-98); MEAN PLATELET VOLUME 9.5 FL (7.4-10.4); MONOCYTES # (AUTO) 1.9 X10'3 (0-0.9); NEUTROPHILS # (AUTO) 15.7 X10'3 (1.8-7.7); NEUTROPHILS % (AUTO) 84.8 % (42-75); PLATELET COUNT 90 X10'3 (140-440); RED CELL DISTRIBUTION WIDTH 15.8 % (11.5-14.5); WHITE BLOOD COUNT 18.5 X10'3 (4.5-11.0)
[2023-09-08 17:00] LABS: ALBUMIN 2.5 G/DL (3.4-5.0); ANION GAP 12 (8-16); BLOOD UREA NITROGEN 34 MG/DL (7-18); BUN/CREATININE RATIO 14.9 (10.0-20.0); CALCIUM 7.1 MG/DL (8.5-10.1); CHLORIDE 102 MMOL/L (99-107); CREATININE 2.28 MG/DL (0.60-1.10); GLUCOSE 126 MG/DL (70-104); SODIUM 136 MMOL/L (135-145); eCRCL 22 ML/MIN; eGFR 28 ML/MIN
[2023-09-08 18:39] LABS: BASOPHILS % (AUTO) 0.1 % (0-1); EOSINOPHILS % (AUTO) 0 % (0-6); HEMATOCRIT 27.1 % (42.0-52.0); HEMOGLOBIN 9.4 g/dl (14.0-17.9); LYMPHOCYTES # (AUTO) 0.8 X10'3 (1.1-4.8); LYMPHOCYTES % (AUTO) 4.6 % (21-51); MEAN CORPUSCULAR HEMOGLOBIN 30.8 PG (27.0-31.0); MEAN CORPUSCULAR HGB CONC 34.5 g/dL (33.0-36.5); MEAN CORPUSCULAR VOLUME 89.4 FL (78-98); MEAN PLATELET VOLUME 9.3 FL (7.4-10.4); MONOCYTES # (AUTO) 1.6 X10'3 (0-0.9); MONOCYTES % (AUTO) 9.1 % (2-12); NEUTROPHILS % (AUTO) 86.2 % (42-75); PLATELET COUNT 90 X10'3 (140-440); RED BLOOD COUNT 3.04 X10'6 (4.70-6.10); RED CELL DISTRIBUTION WIDTH 16.2 % (11.5-14.5); WHITE BLOOD COUNT 17.4 X10'3 (4.5-11.0)
[2023-09-08] MEDS: heparin 10,000 units/1 ML INJ IV PRN (18:55)
[2023-09-08 18:56] LABS: SODIUM,URINE RANDOM < 15 MEQ/L; TOTAL PROTEIN,URINE RANDOM 33.9 MG/DL
[2023-09-08] MEDS: docusate sodium 100mg/10ml UD cup PO SCH (19:23)
[2023-09-08 20:03] LABS: BILIRUBIN,URINE NEGATIVE (Neg); CLARITY,URINE CLEAR (Clear); COLOR,URINE AMBER (Yellow); GLUCOSE, URINE NEGATIVE (Neg); KETONES,URINE TRACE mg/dl (Neg); LEUKOCYTE ESTERASE ,URINE NEGATIVE (Neg); NITRITES, URINE NEGATIVE (Neg); OCCULT BLOOD,URINE NEGATIVE (Neg); PROTEIN,URINE NEGATIVE (Neg); UROBILINOGEN,URINE 0.2 E.U/dL (0.2-1.0)
[2023-09-08 20:16] LABS: UA COLLECTION TYPE NON-SPECIFIED
[2023-09-08] MEDS: normal saline 1000ml 1,000 ML IV ONE (21:00)
[2023-09-08 23:47] LABS: BASOPHILS % (AUTO) 0 % (0-1); EOSINOPHILS % (AUTO) 0 % (0-6); HEMATOCRIT 25.3 % (42.0-52.0); HEMOGLOBIN 8.6 g/dl (14.0-17.9); LYMPHOCYTES # (AUTO) 0.8 X10'3 (1.1-4.8); LYMPHOCYTES % (AUTO) 5.3 % (21-51); MEAN CORPUSCULAR HEMOGLOBIN 30.5 PG (27.0-31.0); MEAN CORPUSCULAR HGB CONC 34.1 g/dL (33.0-36.5); MEAN CORPUSCULAR VOLUME 89.5 FL (78-98); MEAN PLATELET VOLUME 9.1 FL (7.4-10.4); MONOCYTES # (AUTO) 1.4 X10'3 (0-0.9); MONOCYTES % (AUTO) 9.1 % (2-12); NEUTROPHILS # (AUTO) 13.5 X10'3 (1.8-7.7); NEUTROPHILS % (AUTO) 85.6 % (42-75); PLATELET COUNT 87 X10'3 (140-440); RED BLOOD COUNT 2.82 X10'6 (4.70-6.10); RED CELL DISTRIBUTION WIDTH 16.5 % (11.5-14.5); WHITE BLOOD COUNT 15.7 X10'3 (4.5-11.0)
[2023-09-09] VITALS (29 sets, daily range): BP systolic 88–139; BP diastolic 40–72; PULSE 66–114; RESP 12–19; O2SAT 95–100
[2023-09-09 01:41] LABS: ALANINE AMINOTRANSFERASE 10 U/L (12-78); ALBUMIN 2.3 G/DL (3.4-5.0); ALKALINE PHOSPHATASE 31 IU/L (46-116); ANION GAP 11 (8-16); ASPARTATE AMINO TRANSFERASE 25 U/L (10-37); BILIRUBIN,TOTAL 0.8 MG/DL (0.1-1.0); BLOOD UREA NITROGEN 34 MG/DL (7-18); BUN/CREATININE RATIO 16.7 (10.0-20.0); CALCIUM 6.9 MG/DL (8.5-10.1); CHLORIDE 104 MMOL/L (99-107); CREATININE 2.03 MG/DL (0.60-1.10); GLUCOSE 117 MG/DL (70-104); MAGNESIUM 2.3 MG/DL (1.5-2.4); POTASSIUM 3.9 MMOL/L (3.5-5.1); SODIUM 137 MMOL/L (135-145); TOTAL CARBON DIOXIDE 22.3 MMOL/L (24-32); TOTAL PROTEIN 4.6 G/DL (6.4-8.2); eCRCL 26 ML/MIN; eGFR 32 ML/MIN
[2023-09-09 03:22] LABS: BASOPHILS % (AUTO) 0.2 % (0-1); EOSINOPHILS % (AUTO) 0 % (0-6); HEMATOCRIT 25.2 % (42.0-52.0); HEMOGLOBIN 8.7 g/dl (14.0-17.9); LYMPHOCYTES # (AUTO) 0.7 X10'3 (1.1-4.8); LYMPHOCYTES % (AUTO) 4.3 % (21-51); MEAN CORPUSCULAR HEMOGLOBIN 30.5 PG (27.0-31.0); MEAN CORPUSCULAR HGB CONC 34.3 g/dL (33.0-36.5); MEAN CORPUSCULAR VOLUME 88.9 FL (78-98); MEAN PLATELET VOLUME 9.5 FL (7.4-10.4); MONOCYTES # (AUTO) 1.5 X10'3 (0-0.9); MONOCYTES % (AUTO) 8.8 % (2-12); NEUTROPHILS # (AUTO) 14.8 X10'3 (1.8-7.7); NEUTROPHILS % (AUTO) 86.7 % (42-75); PLATELET COUNT 95 X10'3 (140-440); RED BLOOD COUNT 2.84 X10'6 (4.70-6.10); RED CELL DISTRIBUTION WIDTH 16.5 % (11.5-14.5); WHITE BLOOD COUNT 17.1 X10'3 (4.5-11.0)
[2023-09-09 03:46] LABS: ABG BASE EXCESS -4.2 mmol/L (-2.0-2.0); ABG HCO3 19.2 mmol/L (22.0-26.0); ABG OXYGEN SATURATION 96.9 % (94-97); ABG PCO2 (T) 28.3 mmHg (35.0-48.0); ABG PH (T) 7.447 (7.340-7.440); FCOHb 0.3 % (0.0-3.9); FHHb 3.1 % (0.0-5.0); FMetHb 0.3 % (0.0-1.5); FO2Hb 96.3 % (94-97); MODE SIMV; PATIENT TEMPERATURE 36.6; PEEP 5 cm H2O; RESPIRATORY RATE 12 b/min; TIDAL VOLUME 600 mL; TOTAL HEMOGLOBIN 9.3 G/dl (14.0-17.9)
[2023-09-09] MEDS: heparin 25,000 UNIT/250ml bag 250 ML IV PRN (04:14)
[2023-09-09] MEDS ORDERED: ringers solution, lacted 1,000 ML IV ONE (05:15)
[2023-09-09 06:53] LABS: APTT 55 SECONDS (22-32)
[2023-09-09] MEDS ORDERED: fentaNYL/PF 50MCG/1 ML 2ML syringe IV PRN (08:00)
[2023-09-09 08:27] LABS: PHOSPHORUS 3.5 MG/DL (2.3-4.5)
[2023-09-09] MEDS: aspirin 81mg tab.chew PO SCH (08:30)
[2023-09-09] MEDS: FENTANYL-0.9 % NACL/PF 100 ML IV PRN (08:57)
[2023-09-09 09:14] LABS: PLATELET ESTIMATE DECREASED
[2023-09-09 09:15] LABS: ANISOCYTOSIS 1+; POLYCHROMASIA 1+
[2023-09-09] MEDS ORDERED: heparin 10,000 units/1 ML INJ ONE (13:43)
[2023-09-09] MEDS ORDERED: iohexol 300 MG/1 ML 50ml polymer ONE ×2 (13:44→18:41)
[2023-09-09] MEDS ORDERED: fentaNYL /PF 50mcg/ml 5ml ampule ONE (15:00)
[2023-09-09 15:07] LABS: HEMATOCRIT 24.4 % (42.0-52.0); HEMOGLOBIN 8.3 g/dl (14.0-17.9); MEAN CORPUSCULAR HEMOGLOBIN 30.6 PG (27.0-31.0); MEAN CORPUSCULAR HGB CONC 33.9 g/dL (33.0-36.5); MEAN PLATELET VOLUME 9.2 FL (7.4-10.4); PLATELET COUNT 97 X10'3 (140-440); RED BLOOD COUNT 2.71 X10'6 (4.70-6.10); RED CELL DISTRIBUTION WIDTH 16.8 % (11.5-14.5); WHITE BLOOD COUNT 14.8 X10'3 (4.5-11.0)
[2023-09-09 15:21] LABS: ALANINE AMINOTRANSFERASE 9 U/L (12-78); ALBUMIN 2.1 G/DL (3.4-5.0); ALBUMIN/GLOBULIN RATIO 0.8 (1.1-1.5); ALKALINE PHOSPHATASE 31 IU/L (46-116); ANION GAP 11 (8-16); ASPARTATE AMINO TRANSFERASE 42 U/L (10-37); BILIRUBIN,TOTAL 0.7 MG/DL (0.1-1.0); BLOOD UREA NITROGEN 36 MG/DL (7-18); BUN/CREATININE RATIO 19.7 (10.0-20.0); CHLORIDE 106 MMOL/L (99-107); CREATININE 1.83 MG/DL (0.60-1.10); GLUCOSE 116 MG/DL (70-104); POTASSIUM 3.7 MMOL/L (3.5-5.1); SODIUM 139 MMOL/L (135-145); TOTAL CARBON DIOXIDE 22.1 MMOL/L (24-32); TOTAL PROTEIN 4.6 G/DL (6.4-8.2); eCRCL 29 ML/MIN; eGFR 36 ML/MIN
[2023-09-09] MEDS: heparin 10,000 units/1 ML INJ ONE (16:14)
[2023-09-09] MEDS: iohexol 300 MG/1 ML 50ml polymer IV ONE (16:51)
[2023-09-09] MEDS ORDERED: rocuronium 10mg/ml inj IV ONE ×2 (17:04)
[2023-09-09] MEDS ORDERED: vancomycin 1,000mg inj ONE (17:49)
[2023-09-09] MEDS ORDERED: Thrombin (Bovine) 5,000 unit vial TP ONE (18:12)
[2023-09-09] MEDS ORDERED: heparin 1,000unit/ml 10ml vial 10 ML ONE (18:16)
[2023-09-09] MEDS ORDERED: albumin (Human) 5% 250ml 250 ML IV ONE ×2 (18:56)
[2023-09-09 19:34] LABS: APTT > 139 SECONDS (22-32)
[2023-09-09] MEDS ORDERED: heparin 25,000 UNIT/250ml bag 250 ML IV PRN (20:29)
[2023-09-09 21:12] LABS: BASOPHILS % (AUTO) 0 % (0-1); EOSINOPHILS % (AUTO) 0 % (0-6); HEMATOCRIT 28.8 % (42.0-52.0); HEMOGLOBIN 9.8 g/dl (14.0-17.9); LYMPHOCYTES # (AUTO) 1.2 X10'3 (1.1-4.8); LYMPHOCYTES % (AUTO) 7.1 % (21-51); MEAN CORPUSCULAR HEMOGLOBIN 30.2 PG (27.0-31.0); MEAN CORPUSCULAR VOLUME 88.8 FL (78-98); MEAN PLATELET VOLUME 9.4 FL (7.4-10.4); MONOCYTES # (AUTO) 1.3 X10'3 (0-0.9); NEUTROPHILS # (AUTO) 14.2 X10'3 (1.8-7.7); NEUTROPHILS % (AUTO) 84.9 % (42-75); PLATELET COUNT 78 X10'3 (140-440); RED BLOOD COUNT 3.24 X10'6 (4.70-6.10); RED CELL DISTRIBUTION WIDTH 15.8 % (11.5-14.5); WHITE BLOOD COUNT 16.7 X10'3 (4.5-11.0)
[2023-09-09 21:17] LABS: INR 1.2 INR; PROTHROMBIN TIME 12.9 SECONDS (9.0-12.0)
[2023-09-09 21:22] LABS: ALANINE AMINOTRANSFERASE 12 U/L (12-78); ALBUMIN 2.4 G/DL (3.4-5.0); ALBUMIN/GLOBULIN RATIO 1.1 (1.1-1.5); ALKALINE PHOSPHATASE 34 IU/L (46-116); ANION GAP 13 (8-16); APTT > 139 SECONDS (22-32); ASPARTATE AMINO TRANSFERASE 60 U/L (10-37); BILIRUBIN,TOTAL 1.7 MG/DL (0.1-1.0); BLOOD UREA NITROGEN 35 MG/DL (7-18); BUN/CREATININE RATIO 20.6 (10.0-20.0); CALCIUM 6.9 MG/DL (8.5-10.1); CHLORIDE 108 MMOL/L (99-107); GLUCOSE 155 MG/DL (70-104); POTASSIUM 4.2 MMOL/L (3.5-5.1); SODIUM 139 MMOL/L (135-145); TOTAL CARBON DIOXIDE 17.9 MMOL/L (24-32); TOTAL PROTEIN 4.5 G/DL (6.4-8.2); eCRCL 31 ML/MIN; eGFR 39 ML/MIN
[2023-09-09] MEDS: ceFOXitin 2GM-NS 100mL ADDvant 100 ML IV SCH (21:35)
[2023-09-09 23:50] LABS: ABG BASE EXCESS -9.2 mmol/L (-2.0-2.0); ABG HCO3 14.6 mmol/L (22.0-26.0); ABG OXYGEN SATURATION 95.8 % (94-97); ABG PCO2 (T) 24.3 mmHg (35.0-48.0); ABG PH (T) 7.392 (7.340-7.440); ABG PO2 (T) 75.8 mmHg (75.0-100.0); FCOHb 0.3 % (0.0-3.9); FHHb 4.2 % (0.0-5.0); FMetHb 0.3 % (0.0-1.5); FO2Hb 95.2 % (94-97); MODE VENT - SIMV; PATIENT TEMPERATURE 35.7; PEEP 5 cm H2O; RESPIRATORY RATE 12 b/min; TIDAL VOLUME 600 mL; TOTAL HEMOGLOBIN 10.2 G/dl (14.0-17.9)
[2023-09-10] VITALS (37 sets, daily range): BP systolic 96–135; BP diastolic 44–63; PULSE 66–93; RESP 11–23; O2SAT 92–100
[2023-09-10 03:08] LABS: ABG BASE EXCESS -5.5 mmol/L (-2.0-2.0); ABG HCO3 17.7 mmol/L (22.0-26.0); ABG OXYGEN SATURATION 95.2 % (94-97); ABG PCO2 (T) 27.7 mmHg (35.0-48.0); ABG PH (T) 7.425 (7.340-7.440); ABG PO2 (T) 78.3 mmHg (75.0-100.0); FCOHb 0.9 % (0.0-3.9); FHHb 4.7 % (0.0-5.0); FMetHb 0.3 % (0.0-1.5); FO2Hb 94.1 % (94-97); MODE VENT - SIMV; PATIENT TEMPERATURE 37.6; PEEP 5 cm H2O; RESPIRATORY RATE 12 b/min; TIDAL VOLUME 600 mL; TOTAL HEMOGLOBIN 9.9 G/dl (14.0-17.9)
[2023-09-10 05:30] LABS: BASOPHILS % (AUTO) 0.1 % (0-1); EOSINOPHILS % (AUTO) 0.1 % (0-6); HEMATOCRIT 25.7 % (42.0-52.0); HEMOGLOBIN 8.8 g/dl (14.0-17.9); LYMPHOCYTES # (AUTO) 0.6 X10'3 (1.1-4.8); LYMPHOCYTES % (AUTO) 4.2 % (21-51); MEAN CORPUSCULAR HGB CONC 34.3 g/dL (33.0-36.5); MEAN CORPUSCULAR VOLUME 87.3 FL (78-98); MEAN PLATELET VOLUME 9.6 FL (7.4-10.4); MONOCYTES % (AUTO) 7.4 % (2-12); NEUTROPHILS # (AUTO) 12.2 X10'3 (1.8-7.7); NEUTROPHILS % (AUTO) 88.2 % (42-75); PLATELET COUNT 88 X10'3 (140-440); RED BLOOD COUNT 2.95 X10'6 (4.70-6.10); RED CELL DISTRIBUTION WIDTH 16.2 % (11.5-14.5); WHITE BLOOD COUNT 13.9 X10'3 (4.5-11.0)
[2023-09-10 06:01] LABS: ALANINE AMINOTRANSFERASE 22 U/L (12-78); ALBUMIN 2.1 G/DL (3.4-5.0); ALBUMIN/GLOBULIN RATIO 0.9 (1.1-1.5); ALKALINE PHOSPHATASE 37 IU/L (46-116); ANION GAP 11 (8-16); ASPARTATE AMINO TRANSFERASE 117 U/L (10-37); BILIRUBIN,TOTAL 1.3 MG/DL (0.1-1.0); BLOOD UREA NITROGEN 37 MG/DL (7-18); BUN/CREATININE RATIO 20.8 (10.0-20.0); CALCIUM 6.7 MG/DL (8.5-10.1); CHLORIDE 108 MMOL/L (99-107); CREATININE 1.78 MG/DL (0.60-1.10); GLUCOSE 120 MG/DL (70-104); MAGNESIUM 2.2 MG/DL (1.5-2.4); PHOSPHORUS 3.6 MG/DL (2.3-4.5); POTASSIUM 3.7 MMOL/L (3.5-5.1); SODIUM 140 MMOL/L (135-145); TOTAL CARBON DIOXIDE 21.5 MMOL/L (24-32); TOTAL PROTEIN 4.5 G/DL (6.4-8.2); eCRCL 29 ML/MIN; eGFR 37 ML/MIN
[2023-09-10] MEDS: heparin 25,000 UNIT/250ml bag 250 ML IV PRN (11:09)
[2023-09-10] MEDS: albumin (Human) 5% 250ml 250 ML IV ONE (11:14)
[2023-09-10] MEDS: HYDROmorphone inj. 0.5 MG/0.5 ML DISP.SYRIN IV PRN (13:26)
[2023-09-10] MEDS ORDERED: heparin 25,000 UNIT/250ml bag 250 ML IV PRN (14:38)
[2023-09-10] MEDS: ringers solution, lacted 1,000 ML IV SCH (23:15)
[2023-09-11] VITALS (34 sets, daily range): BP systolic 104–164; BP diastolic 6–83; PULSE 69–112; RESP 12–28; O2SAT 80–100
[2023-09-11 02:30] LABS: BASOPHILS % (AUTO) 0.1 % (0-1); EOSINOPHILS % (AUTO) 0.1 % (0-6); HEMATOCRIT 27.1 % (42.0-52.0); HEMOGLOBIN 9.3 g/dl (14.0-17.9); LYMPHOCYTES # (AUTO) 0.7 X10'3 (1.1-4.8); LYMPHOCYTES % (AUTO) 4.1 % (21-51); MEAN CORPUSCULAR HEMOGLOBIN 30.3 PG (27.0-31.0); MEAN CORPUSCULAR HGB CONC 34.3 g/dL (33.0-36.5); MEAN CORPUSCULAR VOLUME 88.4 FL (78-98); MEAN PLATELET VOLUME 8.9 FL (7.4-10.4); MONOCYTES # (AUTO) 1.4 X10'3 (0-0.9); MONOCYTES % (AUTO) 8.7 % (2-12); NEUTROPHILS # (AUTO) 13.8 X10'3 (1.8-7.7); PLATELET COUNT 114 X10'3 (140-440); RED BLOOD COUNT 3.06 X10'6 (4.70-6.10); RED CELL DISTRIBUTION WIDTH 16.9 % (11.5-14.5); WHITE BLOOD COUNT 15.9 X10'3 (4.5-11.0)
[2023-09-11 02:46] LABS: ALANINE AMINOTRANSFERASE 31 U/L (12-78); ALBUMIN 2.3 G/DL (3.4-5.0); ALBUMIN/GLOBULIN RATIO 0.9 (1.1-1.5); ALKALINE PHOSPHATASE 40 IU/L (46-116); ANION GAP 12 (8-16); ASPARTATE AMINO TRANSFERASE 114 U/L (10-37); BILIRUBIN,TOTAL 1.1 MG/DL (0.1-1.0); BLOOD UREA NITROGEN 41 MG/DL (7-18); BUN/CREATININE RATIO 21.8 (10.0-20.0); CALCIUM 7.4 MG/DL (8.5-10.1); CHLORIDE 109 MMOL/L (99-107); CREATININE 1.88 MG/DL (0.60-1.10); GLUCOSE 123 MG/DL (70-104); MAGNESIUM 2.1 MG/DL (1.5-2.4); PHOSPHORUS 2.8 MG/DL (2.3-4.5); POTASSIUM 3.5 MMOL/L (3.5-5.1); SODIUM 142 MMOL/L (135-145); TOTAL CARBON DIOXIDE 20.6 MMOL/L (24-32); eCRCL 28 ML/MIN; eGFR 35 ML/MIN
[2023-09-11 03:15] LABS: ABG HCO3 16.1 mmol/L (22.0-26.0); ABG OXYGEN SATURATION 94.9 % (94-97); ABG PCO2 (T) 24.9 mmHg (35.0-48.0); ABG PH (T) 7.429 (7.340-7.440); ABG PO2 (T) 72.4 mmHg (75.0-100.0); FMetHb 0.3 % (0.0-1.5); FO2Hb 93.7 % (94-97); MODE VENT - SIMV; PATIENT TEMPERATURE 37.2; PEEP 5 cm H2O; RESPIRATORY RATE 12 b/min; TIDAL VOLUME 600 mL
[2023-09-11] MEDS: heparin 25,000 UNIT/250ml bag 250 ML IV PRN ×2 (14:41→20:33)
[2023-09-11 16:32] LABS: ABG BASE EXCESS -5.5 mmol/L (-2.0-2.0); ABG HCO3 18.1 mmol/L (22.0-26.0); ABG OXYGEN SATURATION 98.9 % (94-97); ABG PCO2 (T) 29.1 mmHg (35.0-48.0); ABG PH (T) 7.412 (7.340-7.440); ABG PO2 (T) 139.2 mmHg (75.0-100.0); FCOHb 0.5 % (0.0-3.9); FHHb 1.1 % (0.0-5.0); FLOW 10 L/min; FMetHb 0.3 % (0.0-1.5); FO2Hb 98.1 % (94-97); MODE T PIECE; PATIENT TEMPERATURE 36.9; TOTAL HEMOGLOBIN 10.1 G/dl (14.0-17.9)
[2023-09-11 21:42] LABS: ABG BASE EXCESS -6.5 mmol/L (-2.0-2.0); ABG HCO3 19.7 mmol/L (22.0-26.0); ABG OXYGEN SATURATION 90.3 % (94-97); ABG PH (T) 7.297 (7.340-7.440); ABG PO2 (T) 60.5 mmHg (75.0-100.0); ALLEN'S TEST Modified; FCOHb 0.8 % (0.0-3.9); FHHb 9.6 % (0.0-5.0); FLOW 4 L/min; FMetHb 0.3 % (0.0-1.5); FO2Hb 89.3 % (94-97); MODE NASAL CANNULA; PATIENT TEMPERATURE 36.4; TOTAL HEMOGLOBIN 10.2 G/dl (14.0-17.9)
[2023-09-12] VITALS (28 sets, daily range): BP systolic 105–152; BP diastolic 54–89; PULSE 77–113; RESP 17–27; O2SAT 85–100
[2023-09-12] MEDS: HYDROmorphone 1 mg/ml syringe IV PRN (01:19)
[2023-09-12 02:39] LABS: BASOPHILS % (AUTO) 0.2 % (0-1); EOSINOPHILS % (AUTO) 0.2 % (0-6); HEMATOCRIT 26.6 % (42.0-52.0); HEMOGLOBIN 8.8 g/dl (14.0-17.9); LYMPHOCYTES # (AUTO) 0.6 X10'3 (1.1-4.8); LYMPHOCYTES % (AUTO) 4.3 % (21-51); MEAN CORPUSCULAR HEMOGLOBIN 29.5 PG (27.0-31.0); MEAN CORPUSCULAR HGB CONC 33.2 g/dL (33.0-36.5); MEAN PLATELET VOLUME 8.7 FL (7.4-10.4); MONOCYTES # (AUTO) 1.2 X10'3 (0-0.9); MONOCYTES % (AUTO) 8.1 % (2-12); NEUTROPHILS # (AUTO) 12.8 X10'3 (1.8-7.7); NEUTROPHILS % (AUTO) 87.2 % (42-75); PLATELET COUNT 140 X10'3 (140-440); RED BLOOD COUNT 2.99 X10'6 (4.70-6.10); RED CELL DISTRIBUTION WIDTH 17.3 % (11.5-14.5); WHITE BLOOD COUNT 14.7 X10'3 (4.5-11.0)
[2023-09-12 03:09] LABS: ALANINE AMINOTRANSFERASE 34 U/L (12-78); ALBUMIN 2.1 G/DL (3.4-5.0); ALBUMIN/GLOBULIN RATIO 0.7 (1.1-1.5); ALKALINE PHOSPHATASE 60 IU/L (46-116); ANION GAP 7 (8-16); ASPARTATE AMINO TRANSFERASE 84 U/L (10-37); BILIRUBIN,TOTAL 1.4 MG/DL (0.1-1.0); BLOOD UREA NITROGEN 43 MG/DL (7-18); BUN/CREATININE RATIO 23.8 (10.0-20.0); CALCIUM 7.5 MG/DL (8.5-10.1); CHLORIDE 109 MMOL/L (99-107); CREATININE 1.81 MG/DL (0.60-1.10); GLUCOSE 103 MG/DL (70-104); MAGNESIUM 2.2 MG/DL (1.5-2.4); PHOSPHORUS 2.9 MG/DL (2.3-4.5); POTASSIUM 3.3 MMOL/L (3.5-5.1); SODIUM 141 MMOL/L (135-145); TOTAL CARBON DIOXIDE 25.5 MMOL/L (24-32); eCRCL 29 ML/MIN; eGFR 36 ML/MIN
[2023-09-12 07:36] LABS: APTT 62 SECONDS (22-32)
[2023-09-12 11:18] LABS: APTT 61 SECONDS (22-32)
[2023-09-12 13:33] LABS: ABG BASE EXCESS -6.5 mmol/L (-2.0-2.0); ABG HCO3 19.9 mmol/L (22.0-26.0); ABG PCO2 (T) 42.4 mmHg (35.0-48.0); ABG PH (T) 7.287 (7.340-7.440); ABG PO2 (T) 61.6 mmHg (75.0-100.0); ALLEN'S TEST POSITIVE; FHHb 8.9 % (0.0-5.0); FLOW 10 L/min; FMetHb 0.3 % (0.0-1.5); FO2Hb 89.8 % (94-97); MODE MASK - SIMPLE; PATIENT TEMPERATURE 36.5; TOTAL HEMOGLOBIN 10.7 G/dl (14.0-17.9)
[2023-09-12] MEDS ORDERED: naloxone 0.4 mg/ml inj IV PRN (13:40)
[2023-09-12] MEDS: furosemide 40mg/4ml inj IV ONE (13:44)
[2023-09-12] MEDS ORDERED: HYDROmorph/NS 0.2 mg/ml PCA 100 ML IV SCH ×2 (13:54→14:40)
[2023-09-12] MEDS ORDERED: magnesium Cl slow-release 64mg tablet PO PRN (15:20)
[2023-09-12] MEDS: HYDROmorph/NS 0.2 mg/ml PCA 100 ML IV SCH (15:20)
[2023-09-12] MEDS ORDERED: magnesium 2GM in 50ml NS 50 ML IV PRN (15:20)
[2023-09-12] MEDS ORDERED: magnesium 4gm in 100ml NS 100 ML IV PRN (15:20)
[2023-09-12] MEDS ORDERED: potassium Cl 20 mEq SR tablet PO PRN ×2 (15:20)
[2023-09-12] MEDS ORDERED: Dextrose 10%-water IV solution 1,000 ML IV PRN (15:20)
[2023-09-12 15:46] LABS: ABG BASE EXCESS -4.4 mmol/L (-2.0-2.0); ABG HCO3 20.8 mmol/L (22.0-26.0); ABG OXYGEN SATURATION 96.3 % (94-97); ABG PCO2 (T) 37.9 mmHg (35.0-48.0); ABG PH (T) 7.355 (7.340-7.440); ABG PO2 (T) 80.7 mmHg (75.0-100.0); ALLEN'S TEST POSITIVE; FCOHb 0.8 % (0.0-3.9); FHHb 3.7 % (0.0-5.0); FMetHb 0.3 % (0.0-1.5); FO2Hb 95.2 % (94-97); MODE MASK - BIPAP; PATIENT TEMPERATURE 36.5; RESPIRATORY RATE 10 b/min; TIDAL VOLUME 529 mL; TOTAL HEMOGLOBIN 10.2 G/dl (14.0-17.9)
[2023-09-12 16:11] LABS: APTT 84 SECONDS (22-32)
[2023-09-12 16:42] LABS: APTT 64 SECONDS (22-32)
[2023-09-12] MEDS: Dextrose 10%-water IV solution 1,000 ML IV SCH (16:50)
[2023-09-12] MEDS ORDERED: ZINC/COPPER/MANGANESE/SELENIUM 1 ML, chromic chloride inj. 10 MCG in AA 5%/CALCIUM/LYTE... IV SCH ×2 (17:00)
[2023-09-12 20:48] LABS: APTT 66 SECONDS (22-32)
[2023-09-12] MEDS: albumin (human) 25% 100ml IV 100 ML IV SCH (21:16)
[2023-09-12] MEDS: furosemide 40mg/4ml inj IV SCH (21:20)
[2023-09-13] VITALS: BP 107/49; PULSE 89; RESP 21; O2SAT 94
[2023-09-13 01:00] VITALS: BP 110/58; PULSE 89; RESP 20; O2SAT 93
[2023-09-13 02:00] VITALS: BP 117/58; PULSE 84; RESP 19; O2SAT 95
[2023-09-13 02:44] LABS: BASOPHILS % (AUTO) 0.2 % (0-1); EOSINOPHILS % (AUTO) 0.2 % (0-6); HEMATOCRIT 26.2 % (42.0-52.0); HEMOGLOBIN 8.8 g/dl (14.0-17.9); LYMPHOCYTES # (AUTO) 0.4 X10'3 (1.1-4.8); LYMPHOCYTES % (AUTO) 2.4 % (21-51); MEAN CORPUSCULAR HGB CONC 33.5 g/dL (33.0-36.5); MEAN CORPUSCULAR VOLUME 89.5 FL (78-98); MEAN PLATELET VOLUME 8.4 FL (7.4-10.4); MONOCYTES # (AUTO) 0.9 X10'3 (0-0.9); MONOCYTES % (AUTO) 5.5 % (2-12); NEUTROPHILS # (AUTO) 15.3 X10'3 (1.8-7.7); NEUTROPHILS % (AUTO) 91.7 % (42-75); PLATELET COUNT 170 X10'3 (140-440); RED BLOOD COUNT 2.92 X10'6 (4.70-6.10); RED CELL DISTRIBUTION WIDTH 17.7 % (11.5-14.5); WHITE BLOOD COUNT 16.7 X10'3 (4.5-11.0)
[2023-09-13 02:56] LABS: APTT 61 SECONDS (22-32)
[2023-09-13 03:00] VITALS: BP 117/57; PULSE 88; RESP 18; O2SAT 94
[2023-09-13 03:01] LABS: ALANINE AMINOTRANSFERASE 39 U/L (12-78); ALBUMIN 2.6 G/DL (3.4-5.0); ALBUMIN/GLOBULIN RATIO 0.9 (1.1-1.5); ALKALINE PHOSPHATASE 50 IU/L (46-116); ANION GAP 9 (8-16); ASPARTATE AMINO TRANSFERASE 59 U/L (10-37); BILIRUBIN,TOTAL 1.6 MG/DL (0.1-1.0); BLOOD UREA NITROGEN 46 MG/DL (7-18); BUN/CREATININE RATIO 22.7 (10.0-20.0); CALCIUM 7.7 MG/DL (8.5-10.1); CHLORIDE 109 MMOL/L (99-107); CREATININE 2.03 MG/DL (0.60-1.10); GLUCOSE 132 MG/DL (70-104); MAGNESIUM 2.1 MG/DL (1.5-2.4); PHOSPHORUS 2.9 MG/DL (2.3-4.5); POTASSIUM 3.4 MMOL/L (3.5-5.1); PREALBUMIN 8.3 MG/DL (19-36); SODIUM 143 MMOL/L (135-145); TOTAL CARBON DIOXIDE 24.7 MMOL/L (24-32); TOTAL PROTEIN 5.4 G/DL (6.4-8.2); TRIGLYCERIDES 52 MG/DL (20-135); eCRCL 26 ML/MIN; eGFR 32 ML/MIN
[2023-09-13 03:15] VITALS: PULSE 88; RESP 18; O2SAT 94
[2023-09-13 04:00] VITALS: BP 117/58; PULSE 118; RESP 20; O2SAT 83
[2023-09-13] MEDS: atropine 0.1mg/ml 10ml syringe ONE (04:17)
[2023-09-13] MEDS: PCA WASTE DOCUMENTATION 1 MG ML MC SCH (05:50)
[2023-09-13] MEDS ORDERED: fat emulsion 20% inj. 100 ML IV SCH (08:00)
[2023-09-13] MEDS ORDERED: MVI, adult No.4 with vit. K 10 ML in dextrose 5% water 500ml 500 ML IV SCH (08:00)
== END 2023-09-13 11:16 | DRG 270 ==
LOC: ER 06:40 → ED HOLD 15:59 → CICU 2S 23:06
PROVIDERS: ADMIT Family Medicine; ATTEND Family Medicine
PROC: 04CL0ZZ Extirpation of Matter from Left Femoral Artery, Open Approach (ICD-10-PCS; 2023-09-06)
PROC: 0BH17EZ Insertion of Endotracheal Airway into Trachea, Via Natural or Artificial Opening (ICD-10-PCS; 2023-09-06)
PROC: 04CJ0ZZ Extirpation of Matter from Left External Iliac Artery, Open Approach (ICD-10-PCS; 2023-09-06)
PROC: 041L0JQ Bypass Left Femoral Artery to Lower Extremity Artery with Synthetic Substitute, Open Approach (ICD-10-PCS; 2023-09-06)
PROC: 5A1955Z Respiratory Ventilation, Greater than 96 Consecutive Hours (ICD-10-PCS; 2023-09-06)
PROC: B4201ZZ Computerized Tomography (CT Scan) of Abdominal Aorta using Low Osmolar Contrast (ICD-10-PCS; 2023-09-06)
PROC: B42H1ZZ Computerized Tomography (CT Scan) of Bilateral Lower Extremity Arteries using Low Osmolar Contrast (ICD-10-PCS; 2023-09-06)
PROC: 30233N1 Transfusion of Nonautologous Red Blood Cells into Peripheral Vein, Percutaneous Approach (ICD-10-PCS; principal; 2023-09-07)
PROC: B4201ZZ Computerized Tomography (CT Scan) of Abdominal Aorta using Low Osmolar Contrast (ICD-10-PCS; 2023-09-07)
PROC: B42H1ZZ Computerized Tomography (CT Scan) of Bilateral Lower Extremity Arteries using Low Osmolar Contrast (ICD-10-PCS; 2023-09-07)
PROC: 0KNT0ZZ Release Left Lower Leg Muscle, Open Approach (ICD-10-PCS; 2023-09-09)
PROC: 0KNT0ZZ Release Left Lower Leg Muscle, Open Approach (ICD-10-PCS; 2023-09-09)
PROC: 0KNT0ZZ Release Left Lower Leg Muscle, Open Approach (ICD-10-PCS; 2023-09-09)
PROC: 0KNT0ZZ Release Left Lower Leg Muscle, Open Approach (ICD-10-PCS; 2023-09-09)
PROC: 041L0JL Bypass Left Femoral Artery to Popliteal Artery with Synthetic Substitute, Open Approach (ICD-10-PCS; 2023-09-09)
PROC: 04CL0ZZ Extirpation of Matter from Left Femoral Artery, Open Approach (ICD-10-PCS; 2023-09-09)
PROC: 04CJ0ZZ Extirpation of Matter from Left External Iliac Artery, Open Approach (ICD-10-PCS; 2023-09-09)
PROC: 5A09357 Assistance with Respiratory Ventilation, Less than 24 Consecutive Hours, Continuous Positive Airway Pressure (ICD-10-PCS; 2023-09-12)
DX: T82.898A Other specified complication of vascular prosthetic devices, implants and grafts, initial encounter (principal); I21.A1 Myocardial infarction type 2; J96.90 Respiratory failure, unspecified, unspecified whether with hypoxia or hypercapnia; N17.9 Acute kidney failure, unspecified; I73.9 Peripheral vascular disease, unspecified; D50.0 Iron deficiency anemia secondary to blood loss (chronic); I99.8 Other disorder of circulatory system; I48.0 Paroxysmal atrial fibrillation; K21.9 Gastro-esophageal reflux disease without esophagitis; J44.9 Chronic obstructive pulmonary disease, unspecified; Y83.8 Other surgical procedures as the cause of abnormal reaction of the patient, or of later complication, without mention of misadventure at the time of the procedure; Z66 Do not resuscitate; D72.829 Elevated white blood cell count, unspecified; D69.6 Thrombocytopenia, unspecified; N18.9 Chronic kidney disease, unspecified; E78.00 Pure hypercholesterolemia, unspecified; I12.9 Hypertensive chronic kidney disease with stage 1 through stage 4 chronic kidney disease, or unspecified chronic kidney disease; E03.9 Hypothyroidism, unspecified; Z87.891 Personal history of nicotine dependence; Z79.82 Long term (current) use of aspirin; Z79.899 Other long term (current) drug therapy; Y92.89 Other specified places as the place of occurrence of the external cause; Z95.1 Presence of aortocoronary bypass graft
CPT/HCPCS: 36415; 36430; 36600; 71045; 73560; 74018; 75635; 76000; 80048; 80053; 80061; 81003; 82570; 82803; 82948; 83036; 83735; 83880; 84100; 84134; 84156; 84300; 84439; 84443; 84478; 84484; 84540; 85007; 85008; 85018; 85025; 85027; 85610; 85730; 86885; 86900; 86901; 86920; 87070; 87075; 87081; 88300; 88304; 93005; 93306; 93922; 93926; 93970; 94002; 94003; 94660; 94760; 94799; 99291; A4333; A4338; A4615; A4618; A4620; A4624; A4649; A6154; A6209; A6212; A6213; A6223; A6253; A6258; A6402; A6446; A6449; A6455; A7000; C1757; C1758; C1768; G0378; J0282; J0461; J0690; J0694; J1100; J1170; J1644; J1940; J2250; J2270; J2370; J2405; J2704; J2720; J3010; J3370; J3475; J3490; J7030; J7040; J7050; J7060; J7120; P9016; P9045; P9047; Q9967